=== PATIENT | female | born 1985 | race Caucasian/White ===

== ENCOUNTER 2019-05-24 08:04 | Outpatient (REF) | payer OTHER, SELFPAY ==
[2019-05-24 13:19] LABS: Chol HDL Ratio 4.75 mg/dL (0.0-4.40); Cholesterol 190 mg/dL (0-200); Glucose 75 mg/dL (65-115); HDL Cholesterol 40 mg/dL (60-100); LDL Cholesterol Calculated 120 mg/dL (50-129); Triglycerides 150 mg/dL (0-150)
[2019-05-24 14:17] LABS: Estmated Average Glucose 111; Hemoglobin A1C 5.5 % (4.0-6.0)
== END 2019-05-24 08:05 | disposition home or self-care (01) ==
LOC: LAB 08:04
PROVIDERS: Family Provider Family Medicine; Visit Provider Dermatology
DX: Z01.89 Encounter for other specified special examinations (principal)
CPT/HCPCS: 80061; 82947; 83036

== ENCOUNTER → 2020-08-18 09:05 | Outpatient (BNVA) | payer OTHER, SELFPAY | PROVIDERS: Family Provider Family Medicine; PCP Family Medicine; Visit Provider Family Medicine | DX: Z20.822 Contact with and (suspected) exposure to COVID-19 (principal) | CPT/HCPCS: 87635 ==

== ENCOUNTER 2020-08-21 07:31 | Emergency (ER) | payer OTHER, SELFPAY ==
[2020-08-21 07:33] VITALS: BP 148/80; PULSE 99; RESP 18; TEMP 37.2; O2SAT 99; BMI 36.9
[2020-08-21 07:45] VITALS: O2SAT 97
--- NOTE | 2020-08-21 08:03 | CT_ITS ---
WS: [id number] CT ABDOMEN AND PELVIS WITH CONTRAST HISTORY: Severe abdominal pain for 8 days. Right-sided pain. TECHNIQUE: Imaging performed of the abdomen and pelvis with IV contrast. Single phase imaging of the abdomen. Coronal and sagittal reformats are submitted. All CT scans at [facility] use at least one of these dose optimization techniques: automated exposure control; mA and/or kV adjustment per patient size (includes targeted exams where dose is matched to clinical indication); or iterativ e reconstruction. IV CONTRAST: Omnipaque 300; 95 mL IV. Oral contrast: No DLP: 1788.18 mGy.cm COMPARISON: 02/17/2019 Lower thorax: Lung bases are clear. Heart is normal size. No hiatal hernia. Liver/biliary system: Normal size with no intrahepatic dilatation. Gallbladder: Status post cholecystectomy. Pancreas: Normal size pancreas and pancreatic duct. No adjacent inflammation. Spleen: Normal size spleen. No mass or infarct. Adjacent splenule. Adrenal glands: Normal. Right kidney: Normal. Left kidney: Normal. Aorta: Normal. Lymphadenopathy: None. Free fluid: None. GI tract: There is mild increase fluid in the stomach and duodenal C-loop. No significant wall thicke art or evidence for gastritis. The appendix is not visualized but there are no findings of acute esther endicitis. No GI tract obstruction. Abdominal wall: Unremarkable abdominal wall. No hernia. Pelvis: No free fluid or adenopathy within the pelvis. Normal size anteverted uterus. No adnexal mass es. Bones: Unremarkable. CT/CT abdomen pelvis w con* [id number] IMPRESSION: 1. No acute abdominal or pelvic abnormalities are identified. There is no free fluid or adenopathy. 2. No evidence for appendicitis. Appendix not identified but there are no seco ndary findings of appendicitis. 3. Prior cholecystectomy. 4. No renal obstruction.
--- NOTE | 2020-08-21 08:04 | ED_ITS ---
HPI - Abdominal Pain General: Chief Complaint: Abdominal Pain Stated Complaint: Severe ABD Pain (8 Days) Time Seen by Provider: 08/21/20 07:38 History of Present Illness: HPI narrative: 35-year-old female right-sided abdominal pain and flank. He said the spot 8 days radiates into the back. Initial thought was due to gastroenteritis but is persisting. Seems to be worse when she eats fatty foods. She is not had any acholic stools no hematochezia melena hematemesis or coffee-ground emesis. MD elicited complaint: abdominal pain Pertinent past history: none Pain Consistency: constant Location: Epigastric and RUQ Severity: mild Quality: cramping Radiation: none Migration to: no migration and R flank Exacerbating factors: eating Relieving factors: nothing Associated Symptoms: Reports bloating, GI cramping, diarrhea, nausea and poor appetite; Denies anorexia, belching, change in bowel habits, change in stool character, chills, coffee ground emesis, constipation, dyspepsia, dysuria, excessive flatus, fever(s), heartburn, hematochezia, hematuria, hematemesis, fecal incontinence, loose stools, melena, syncope and vomiting Review of Systems Const: Denies: fever(s) or chills ENMT: Denies: throat pain, ear or mastoid pain, nasal discharge or nasal congestion Card: Denies: syncope Resp: Denies: dyspnea, productive cough or non-productive cough GI: Reports: nausea, diarrhea, bloating and GI cramping; Denies: vomiting, hematemesis, coffee ground emesis, heartburn, constipation, belching, excessive flatus, fecal incontinence, change in bowel habits, change in stool character, hematochezia or melena : Denies: dysuria or hematuria Skin/Breast: Denies: rash or pruritus PFSH ED PFSH: Medical History Endometriosis Has had chronic pelvic pain for many years and was diagnosed with endometriosis in 2009 at time of laparoscopy by Dr. Cary. She has been on suppressive control pills since then-most recently Microgestin 1.530 with iron since 2019 and symptoms are well controlled with this. Gastritis No pertinent past medical history Surgical History S/P cholecystectomy (~2014) Laparoscpic, performed by Dr. Coronel S/P excision of lipoma (~2018) From right abdomen by Dr. Chi at [facility] S/P laparoscopy (~2009) 2009 ---> Take down of endometriosis adhesions by Dr. Cary at [facility] S/P tonsillectomy at age 6 S/P wisdom tooth extraction Status post surgery right shoulder surgery/impringement syndrome Family History Mother Heart disease Diabetes Father Heart disease Brother Lymphoma Denies family history of Colon cancer Ovarian cancer Hyperlipidemia Breast cancer Anesthesia complication Bleeding disorder Hypertension Uterine cancer Thyroid condition Stroke Social History Smoking and tobacco status: never smoked Alcohol intake: unknown Additional social history: - Tobacco Use: Denies past or current use Drug Use: Denies Alcohol Use: Denies Work/Study Status: 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 Physical Exam Const: COMMON NORMALS: no acute distress GENERAL APPEARANCE: cooperative and comfortable ORIENTATION/CONSCIOUSNESS: Yes awake, Yes oriented to person, Yes oriented to place and Yes oriented to time HENMT: COMMON NORMALS: normocephalic, atraumatic and hearing grossly normal bilaterally HEAD & SCALP: normocephalic and atraumatic Neck/C-Spine: COMMON NORMALS: no JVD Resp: COMMON NORMALS: normal respiratory effort, No retractions, No use of accessory muscles and clear to auscultation bilaterally AUSCULTATION: clear to auscultation bilaterally Cardio: COMMON NORMALS: no JVD, regular rate, regular rhythm and No murmurs present (Cardio) RATE: regular rate RHYTHM: regular rhythm GI: COMMON NORMALS: Soft to palpation and No hepatosplenomegaly present AUSCULTATION: Yes normoactive bowel sounds PALPATION: Yes Soft to palpation, No Tenderness to palpation present (GI), No Guarding due to palpation present (GI) and Yes No hepatosplenomegaly present Extremity: COMMON NORMALS: normal to inspection, capillary refill normal, no clubbing, cyanosis or edema, no calf tenderness and no pedal edema Neuro: SENSORIUM/ORIENTATION: Yes oriented to person, Yes oriented to place and Yes oriented to time Skin: COMMON NORMALS: no rashes or lesions noted GENERAL SKIN EXAM: no rashes or lesions noted Course Vital Signs: Vital signs: Vital Signs Temperature 99.0 F 08/21/20 07:33 Pulse Rate 77 08/21/20 10:41 Respiratory Rate 18 08/21/20 07:33 Blood Pressure 122/99 08/21/20 10:41 Pulse Oximetry 96 08/21/20 10:41 MDM - Abdominal Pain MDM Narrative: Medical decision making narrative: Refer to general surgery for further evaluation return if has problems Lab Data: Labs: Lab Results 08/21/20 08/21/20 08/21/20 Range/Units 07:50 08:20 08:20 WBC Cancelled Corrected WBC Cancelled RBC Cancelled Hgb Cancelled Hct Cancelled MCV Cancelled MCH Cancelled MCHC Cancelled RDW Cancelled Plt Count Cancelled MPV Cancelled Gran % Cancelled Neut % (Auto) Cancelled Lymph % (Auto) Cancelled [place] % (Auto) Cancelled Eos % (Auto) Cancelled Baso % (Auto) Cancelled Neut # (Auto) Cancelled Lymph # (Auto) Cancelled [place] # (Auto) Cancelled Eos # (Auto) Cancelled Baso # (Auto) Cancelled Absolute Gran (aut o) Cancelled Nucleated RBC % (a uto) Cancelled Nucleated RBCs # Cancelled Sodium 138 (136-145) mmol/L Potassium 3.8 (3.5-5.1) mmol/L Chloride 105 (98-107) mmol/L Carbon Dioxide 23 (22-29) mmol/L Anion Gap 13.8 (5-19) BUN 9 (6-20) mg/dL Creatinine 0.8 (0.5-0.9) mg/dL GFR Calculation 82.1 L (90-130) mL/min Glucose 108 (65-115) mg/dL Calculated Osmolal ity 285 (285-295) mOsm/k g Calcium 9.3 (8.5-10.5) mg/dL Total Bilirubin 0.3 (0.15-1.2) mg/dL AST 26 (0-32) U/L ALT 35 H (0-33) U/L Alkaline Phosphata se 139 H (35-105) IU/L Total Protein 7.1 (6.6-8.7) g/dL Albumin 4.2 (3.5-5.2) g/dL Globulin 2.9 (1.3-4.6) g/dL Lipase 24 (13-60) U/L HCG, Qual (Negative) Urine Color Yellow (Yellow) Urine Appearance Clear (CLEAR) Urine pH 5 (5-7) Ur Specific Gravit y 1.030 (1.005-1.030) Urine Protein Neg (Negative) Urine Glucose (UA) Norm (Normal) Urine Ketones 1+ H (Negative) Urine Blood 2+ H (Negative) Urine Nitrate Negative (Negative) Urine Bilirubin Neg (Negative) Urine Urobilinogen Norm (Negative) mg/dL Ur Leukocyte Lexie ase Negative (Negative) Urine RBC 0-4 H (0-2) /hpf Urine WBC 5-10 H (0-5) /hpf Ur Squamous Epith Cells 5-10 H (0-5) /hpf Amorphous Sediment Not Reportable Urine Bacteria 1+ H (NONE) /hpf Urine Mucus 1+ /hpf 08/21/20 08/21/20 Range/Units 08:20 09:08 WBC 5.0 Corrected WBC RBC 4.56 Hgb 12.9 Hct 40.1 MCV 87.9 MCH 28.3 MCHC 32.2 RDW 13.3 Plt Count 271 MPV 10.2 Gran % Neut % (Auto) 53.2 Lymph % (Auto) 38.0 [place] % (Auto) 7.0 Eos % (Auto) 1.0 Baso % (Auto) 0.6 Neut # (Auto) 2.68 Lymph # (Auto) 1.9 [place] # (Auto) 0.4 Eos # (Auto) 0.1 Baso # (Auto) 0.0 Absolute Gran (aut o) Nucleated RBC % (a uto) 0 Nucleated RBCs # 0.0 Sodium (136-145) mmol/L Potassium (3.5-5.1) mmol/L Chloride (98-107) mmol/L Carbon Dioxide (22-29) mmol/L Anion Gap (5-19) BUN (6-20) mg/dL Creatinine (0.5-0.9) mg/dL GFR Calculation (90-130) mL/min Glucose (65-115) mg/dL Calculated Osmolal ity (285-295) mOsm/k g Calcium (8.5-10.5) mg/dL Total Bilirubin (0.15-1.2) mg/dL AST (0-32) U/L ALT (0-33) U/L Alkaline Phosphata se (35-105) IU/L Total Protein (6.6-8.7) g/dL Albumin (3.5-5.2) g/dL Globulin (1.3-4.6) g/dL Lipase (13-60) U/L HCG, Qual Negative (Negative) Urine Color (Yellow) Urine Appearance (CLEAR) Urine pH (5-7) Ur Specific Gravit y (1.005-1.030) Urine Protein (Negative) Urine Glucose (UA) (Normal) Urine Ketones (Negative) Urine Blood (Negative) Urine Nitrate (Negative) Urine Bilirubin (Negative) Urine Urobilinogen (Negative) mg/dL Ur Leukocyte Lexie ase (Negative) Urine RBC (0-2) /hpf Urine WBC (0-5) /hpf Ur Squamous Epith Cells (0-5) /hpf Amorphous Sediment Urine Bacteria (NONE) /hpf Urine Mucus /hpf Discharge Plan Discharge Patient Disposition: Home Clinical Impression: Abdominal pain Condition: Stable Prescriptions: New hydrocodone-acetaminophen 5-325 mg tablet 1 tab PO Q6H PRN (Reason: pain) Qty: 20 RF: 0 Zofran 4 mg tablet 4 mg PO Q6H PRN (Reason: nausea and vomiting) Qty: 20 RF: 0 pantoprazole 40 mg tablet,delayed release (DR/EC) 40 mg PO BID 14 Days Qty: 28 RF: 0 Discontinued pantoprazole [Protonix] 40 mg tablet,delayed release (DR/EC) 40 mg PO DAILY Qty: 90 RF: 3 No Action norethindrone ac-eth estradiol [Microgestin 1.5/30 (21)] 1.5-30 mg-mcg tablet 1 tab PO DAILY Qty: 126 RF: 3 Zyrtec 10 mg capsule 10 mg PO DAILY RF: 0 Discharge Orders: Discharge ED (Routine); Ordered 08/21/20 Ordered By: Dale Aleman Referrals: Elisabeth Zambrano DO [Primary Care Provider] - Patient Instructions: Abdominal Pain (ED), Opioid Safety Coding Level of Care Code ED Health Promotion Officer for Chg Fwd Exam Comprehensive
[2020-08-21 08:42] LABS: HCG, Serum Qual Negative (Negative)
[2020-08-21 08:51] LABS: Alanine Aminotransferase 35 U/L (0-33); Albumin Level 4.2 g/dL (3.5-5.2); Alkaline Phosphatase 139 IU/L (35-105); Blood Urea Nitrogen 9 mg/dL (6-20); Calcium 9.3 mg/dL (8.5-10.5); Carbon Dioxide 23 mmol/L (22-29); Chloride 105 mmol/L (98-107); Globulin 2.9 g/dL (1.3-4.6); Glomerular Filtration Rate 82.1 mL/min (90-130); Glucose 108 mg/dL (65-115); Lipase 24 U/L (13-60); Osmolality Calculated 285 mOsm/kg (285-295); Sodium 138 mmol/L (136-145); Total Bilirubin 0.3 mg/dL (0.15-1.2); Total Protein 7.1 g/dL (6.6-8.7)
[2020-08-21] MEDS: iohexol 300 mg/mL 100 mL Btl IV (08:53)
[2020-08-21 08:54] LABS: Anion Gap 13.8 (5-19); Aspartate Amino Transferase 26 U/L (0-32); Potassium 3.8 mmol/L (3.5-5.1)
[2020-08-21 08:56] LABS: Add Urine Microscopic? YES; Bilirubin Urine Neg (Negative); Blood Urine 2+ (Negative); Glucose Urine UA Norm (Normal); Ketones Urine 1+ (Negative); Leukocyte Esterase Urine Negative (Negative); Nitrate Urine Negative (Negative); Protein Urine Neg (Negative); RBC Urine 0-4 /hpf (0-2); Urine Appearance Clear (CLEAR); Urine Color Yellow (Yellow); Urobilinogen Urine Norm (Negative); pH Urine 5 (5-7)
[2020-08-21 08:57] LABS: Bacteria Urine 1+ /hpf; Mucus Urine 1+ /hpf
[2020-08-21 08:58] LABS: Add Urine Culture? No
[2020-08-21 09:09] VITALS: BP 128/83; PULSE 73; O2SAT 95
[2020-08-21 09:25] LABS: Basophils % 0.6 %; Eosinophils # 0.1 10^3/uL (0.0-0.8); Hematocrit 40.1 % (37.0-47.0); Hemoglobin 12.9 g/dL (11.5-15.3); Lymphocytes # 1.9 10^3/uL (0.8-4.8); Mean Corpuscular HGB Conc 32.2 g/dL (30.0-36.0); Mean Corpuscular Hemoglobin 28.3 pg (28.0-34.0); Mean Corpuscular Volume 87.9 fL (81-99); Mean Platelet Volume 10.2 fL (7.4-10.4); Monocytes # 0.4 10^3/uL (0.2-0.9); Neutrophils # 2.68 10^3/uL (1.8-7.7); Neutrophils % 53.2 %; Nucleated Red Blood Cells % 0 %; Platelet Count 271 10^3/cmm (130-400); Red Blood Count 4.56 10^6/uL (4.1-5.3); Red Cell Distribution Width 13.3 % (12.1-15.1)
--- NOTE | 2020-08-21 10:34 | PC.NURSE ---
when nurse went into to administer IV medications Pt stated she did not want to get any medicine here since she had to drive herself home.
[2020-08-21 10:41] VITALS: BP 122/99; PULSE 77; O2SAT 96
== END 2020-08-21 10:42 | disposition home or self-care (01) ==
PROVIDERS: Emergency Provider Family Medicine; PCP Family Medicine
DX: R10.9 Unspecified abdominal pain (principal)
CPT/HCPCS: 36415; 74177; 80053; 81001; 83690; 84703; 85025; 99283; Q9967

== ENCOUNTER 2020-12-01 14:20 | Outpatient (CLI) | payer OTHER, SELFPAY ==
--- NOTE | 2020-12-01 14:25 | MR_ITS ---
WS: [id number] MRI OF THE NECK WITHOUT GADOLINIUM ENHANCEMENT. INDICATION: Tinnitus. Right ear pain. Right ear hearing loss TECHNIQUE: Axial T1, axial T2, coronal T1, coronal T2, coronal T1 fat sat and sagittal T2 fat sat. Ga dolinium was not administered due to inability to obtain IV access. FINDINGS: Correlation made with prior MRa and MRV February 2019 Normal posterior fossa. Normal vascular flow voids at the skull base. Proximal 7th and 8th cranial ne rves appear normal. Normal trigeminal nerve root entry zones. Partially empty sella unchanged since t he prior examinations. Parotid glands are normal. Normal submandibular glands. Tongue base is normal. Normal parapharyngeal fat. No evidence of supraglottic or glottic mass. Normal vallecula and aryepiglottic folds. Normal pi riform sinuses. Normal glottis and vocal cords. Normal subglottic airway. Normal vertebral artery flow voids. No cervical lymphadenopathy.Straightening of the normal cervical lordosis. Cord signal is normal. MR/[place] [id number] IMPRESSION:Gadolinium not administered due to inability to obtain IV access. 1. Proximal 7th and 8th cranial nerves appear normal. Normal trigeminal nerve root entry zones. Normal vascular flow voids at the skull base. 2. No cervical lymphadenopathy. 3. No evidence of supraglottic or glottic mass. 4. Normal salivary glands. 5. No other significant findings.
== END 2020-12-01 14:21 | disposition home or self-care (01) ==
PROVIDERS: PCP Family Medicine; Visit Provider Specialist
DX: H92.01 Otalgia, right ear (principal); H93.11 Tinnitus, right ear; H91.91 Unspecified hearing loss, right ear
CPT/HCPCS: 70336

== ENCOUNTER → 2020-12-30 09:38 | Outpatient (BNVA) | payer OTHER, SELFPAY | PROVIDERS: PCP Family Medicine; Visit Provider Nurse Practitioner Women's Health | DX: N89.8 Other specified noninflammatory disorders of vagina (principal) | CPT/HCPCS: 87070; 87205 ==

== ENCOUNTER → 2021-09-15 14:01 | Outpatient (BNVA) | payer OTHER, SELFPAY | PROVIDERS: PCP Family Medicine; Visit Provider Obstetrics & Gynecology | DX: R30.0 Dysuria (principal); Z12.4 Encounter for screening for malignant neoplasm of cervix | CPT/HCPCS: 81003; 87086; 87624 ==

== ENCOUNTER → 2021-09-21 09:00 | Outpatient (BNVA) | payer OTHER, SELFPAY | PROVIDERS: PCP Family Medicine; Visit Provider Nurse Practitioner Family | DX: Z13.1 Encounter for screening for diabetes mellitus (principal); Z13.6 Encounter for screening for cardiovascular disorders; E03.9 Hypothyroidism, unspecified; E66.9 Obesity, unspecified | CPT/HCPCS: 80053; 80061; 84439; 84443 ==

== ENCOUNTER → 2021-10-20 09:30 | Outpatient (BNVA) | payer OTHER, SELFPAY | PROVIDERS: PCP Family Medicine; Visit Provider Nurse Practitioner Family | DX: Z00.00 Encounter for general adult medical examination without abnormal findings (principal); E66.9 Obesity, unspecified; Z13.6 Encounter for screening for cardiovascular disorders | CPT/HCPCS: 80061; 84439; 84443 ==

== ENCOUNTER → 2022-09-23 08:23 | Outpatient (BNVA) | payer OTHER, SELFPAY | PROVIDERS: PCP Family Medicine; Visit Provider Family Medicine | DX: Z00.00 Encounter for general adult medical examination without abnormal findings (principal); E83.52 Hypercalcemia | CPT/HCPCS: 80053; 80061; 82306; 83036; 84443; 85025 ==

== ENCOUNTER → 2023-10-18 15:21 | Outpatient (BNVA) | payer OTHER, SELFPAY | PROVIDERS: PCP Family Medicine; Visit Provider Obstetrics & Gynecology | DX: D25.0 Submucous leiomyoma of uterus (principal) | CPT/HCPCS: 76830 ==

== ENCOUNTER → 2024-08-02 10:48 | Outpatient (BNVA) | payer OTHER, SELFPAY | PROVIDERS: PCP Nurse Practitioner; Visit Provider Nurse Practitioner | DX: R10.31 Right lower quadrant pain (principal); G89.29 Other chronic pain | CPT/HCPCS: 85025 ==

== ENCOUNTER → 2025-01-28 08:44 | Outpatient (BNVA) | payer OTHER, SELFPAY | PROVIDERS: PCP Nurse Practitioner; Referring Provider Nurse Practitioner; Visit Provider Nurse Practitioner | DX: R30.0 Dysuria (principal) | CPT/HCPCS: 81000 ==

== ENCOUNTER → 2025-04-04 11:13 | Outpatient (BNVA) | payer OTHER, SELFPAY | PROVIDERS: PCP Nurse Practitioner; Visit Provider Nurse Practitioner | DX: Z00.00 Encounter for general adult medical examination without abnormal findings (principal) | CPT/HCPCS: 80053; 80061; 84443; 85025 ==